=== PATIENT | male | born 1990 | race Caucasian/White ===

== ENCOUNTER 2019-12-10 09:52 | Emergency (ER) | payer OTHER ==
[2019-12-10 10:37] VITALS: BP 113/79
--- NOTE | 2019-12-10 10:41 | UC ---
Throat Pain/Nasal Ap HPI - HPI Summary HPI Summary: 29-year-old male who has had head congestion and cold symptoms for just over 1 week. He states he felt better one day this week and then progress to feel worse with sinus pressure, headaches and yellowish coryza. He did get a flu shot in the fall. - History of Current Complaint Chief Complaint: UCRespiratory Stated Complaint: RUNNY NOSE CONGESTION Time Seen by Provider: 12/10/19 10:14 Hx Obtained From: Patient Onset/Duration: Gradual Onset Severity: Mild Pain Intensity: 5 Associated Signs & Symptoms: Positive: Sinus Discomfort, Nasal Discharge - Allergies/Home Medications Allergies/Adverse Reactions: Allergies Allergy/AdvReac Type Severity Reaction Status Date / Time No Known Allergies Allergy Verified 12/10/19 10:26 Home Medications: Home Medications Ascorbic Acid TAB* [Vitamin C TAB*] 500 mg PO DAILY 12/10/19 [History Confirmed 12/10/19] D-Methorphan/PE/Acetaminophen [Vicks Dayquil Cold & Flu] 2 cap PO Q6H PRN [History Confirmed 12/10/19] Dm/Acetaminophen/Doxylamine [Vicks Nyquil Cold & Flu N 15-6.25-325 mg] 2 cap PO QPM PRN 12/10/19 [History Confirmed 12/10/19] Pseudoephedrine HCl [Nasal Decongestant] 2 tab PO DAILY PRN 12/10/19 [History Confirmed 12/10/19] PMH/Surg Hx/FS Hx/Imm Hx Previously Healthy: Yes - Surgical History Surgical History: Yes Surgery Procedure, Year, and Place: wisdom teeth, pilonidal cyst, appy - Family History Known Family History: Positive: Non-Contributory - Social History Alcohol Use: Weekly Alcohol Amount: Saturdays 6-8 Substance Use Type: None Smoking Status (MU): Former Smoker Type: Smokeless Tobacco Amount Used/How Often: 1 tin/day Review of Systems All Other Systems Reviewed And Are Negative: Yes ENT: Positive: Nasal Discharge, Sinus Congestion, Sinus Pain/Tenderness Is Patient Immunocompromised?: No Physical Exam Triage Information Reviewed: Yes Appearance: Well-Appearing, No Pain Distress, Well-Nourished Vital Signs: Initial Vital Signs Temp 98.3 F 12/10/19 10:30 Pulse 90 12/10/19 10:30 Resp 18 12/10/19 10:30 BP 113/79 12/10/19 10:30 Pulse Ox 99 12/10/19 10:30 Vital Signs Reviewed: Yes Eyes: Positive: Conjunctiva Clear ENT: Positive: Hearing grossly normal, Pharynx normal - Yellow postnasal drainage, Nasal congestion, Nasal drainage - Greenish yellow nasal coryza., TMs normal, Uvula midline. Negative: Sinus tenderness Neck: Positive: Supple, Nontender, No Lymphadenopathy Respiratory: Positive: Lungs clear, Normal breath sounds, No respiratory distress, No accessory muscle use Cardiovascular: Positive: RRR, No Murmur, Pulses Normal, Brisk Capillary Refill Musculoskeletal Exam: Normal Neurological Exam: Normal Psychological Exam: Normal Skin Exam: Normal Throat Pain/Nasal Course/Dx - Course Course Of Treatment: The patient is comfortable here. It's possible he may have had mild flu. We discussed viral versus bacterial illnesses. I'm giving the patient a prescription for amoxicillin but he can wait and continue to do over-the- counter cold medicines over the next few days and if he continues to have symptoms of sinus infection then she can start the antibiotic. Patient is agreeable with this plan of action. - Differential Dx/Diagnosis Provider Diagnosis: Sinusitis Discharge ED - Sign-Out/Discharge Documenting (check all that apply): Patient Departure All imaging exams completed and their final reports reviewed: No Studies - Discharge Plan Condition: Good Disposition: HOME Prescriptions: Amoxicillin PO (*) [Amoxicillin 875 MG (*)] 875 mg PO BID 10 Days #20 tab Patient Education Materials: Sinusitis (ED) Referrals: Morgan Lazar [Primary Care Provider] - Additional Instructions: Increase fluids, rest. If you prefer you may wait a few days before you start the antibiotic and start if continued head congestion and sinus pressure or worsening symptoms. I think at this point this may still be a viral infection and you may not need an antibiotic. - Billing Disposition and Condition Condition: GOOD Disposition: Home
== END 2019-12-10 10:53 | disposition home or self-care (01) ==
LOC: UCCORT 09:52
DX: J32.9 Chronic sinusitis, unspecified (principal); Z87.891 Personal history of nicotine dependence
CPT/HCPCS: 99202; G0463